=== PATIENT | male | born 1975 | race African-American/Black ===

== ENCOUNTER 2021-05-14 03:47 | Emergency (ER) | payer MEDICAID ==
--- NOTE | 2021-05-14 03:57 | ED Physician Documentation ---
PD HPI UPPER EXT INJURY - Stated complaint Stated Complaint: R THUMB INJ - History obtained from History obtained from: Patient - History of Present Illness Location: Right, Finger (thumb) Type of injury: Crush (caught in car door that closed forcefully on thumb. Blood under nail with feeling of pressure. Also pain at IP joint.) Where injury occurred: Home Timing - onset: Last night (this past evening (about 6 hours ago) with pain worsening overnight.) Timing - duration: Hours Timing - details: Abrupt onset, Still present Improved by: No: Rest, Meds (took Tylenol without improvement.) Worsened by: Moving, Palpating Associated symptoms: Swelling. No: Weakness, Numbness Similar symptoms before: Has not had sx before Review of Systems Cardiac: reports: Palpitations (feeling like having some palpitations/pressure in chest in response to the thumb pain.) Skin: denies: Abrasion (s), Laceration (s) Neurologic: denies: Focal weakness, Numbness PD PAST MEDICAL HISTORY - Past Medical History Cardiovascular: Other (he states he has had "angina" pains intermittently. No prior heart testing, heart cath nor stress testing. ) Respiratory: None - Present Medications Home Medications: Ambulatory Orders Medication Instructions Recorded Confirmed No Known Home Medications 05/14/21 05/14/21 - Allergies Allergies/Adverse Reactions: Allergies Allergy/AdvReac Type Severity Reaction Status Date / Time No Known Drug Allergies Allergy Verified 05/14/21 03:58 PD ED PE NORMAL - Vitals Vital signs reviewed: Yes - General General: Alert and oriented X 3, No acute distress, Well developed/nourished - Cardiac Cardiac: RRR, No murmur - Respiratory Respiratory: Clear bilaterally - Derm Derm: Normal color, Warm and dry - Extremities Extremities: Other (right thumb tender at nailbed and IP area. There is blood under the proximal portion of the nail. Distal nailbed in still normal. ) Results - Vitals Vitals: Vital Signs - 24 hr 05/14/21 03:56 Temperature 36.4 C L Heart Rate 53 L Respiratory 15 Rate Blood Pressure 131/78 H O2 Saturation 99 Oxygen O2 Source Room air - Rads (name of study) right thumb Radiology: Prelim report reviewed (no fractures), See rad report Procedures - General procedure General procedure: subungual hematoma at proximal nailbed decompressed with handheld cautery with couple drops of blood out. PD MEDICAL DECISION MAKING - ED course Complexity details: considered differential (he declined ECG. Can get xray of thumb. I did decompress the subungual blood. ), d/w patient Departure - Departure Disposition: 01 Home, Self Care Clinical Impression: Thumb contusion, Subungual hematoma Condition: Stable Instructions: ED Hematoma Subungual Comments: The xray is good withut any fractures/breaks. The swelling and pain should decrease over a few days. Ice, elevate and protect the finger. Tylenol or Ibuprofen as needed for pains. Add the hydrocodone provided as needed every 4-6 hours. That will cover the next day or so, and the pain should be imprved enough by then to get by with Tylenol and/or Ibuprofen. This should improve over the next several days.
[2021-05-14 03:58] VITALS: BP 131/78
[2021-05-14] MEDS ORDERED: IBUPROFEN 600 MG TABLET PO STA (04:06)
[2021-05-14] MEDS ORDERED: HYDROcod/ACET 5/325 Prepack 4 PO STA (04:07)
--- NOTE | 2021-05-14 08:17 | XRAY Report ---
PROCEDURE: Finger(s) RT INDICATIONS: right thumb crush injury TECHNIQUE: AP hand, 3 views of the right first finger(s) acquired. COMPARISON: None FINDINGS: Bones: No acute fractures or dislocations. No suspicious bony lesions. Orthopedic screws noted in t he third metacarpal. Mild first DIP joint osteoarthritis. Soft tissues: No suspicious soft tissue calcifications. No radiodense foreign body. IMPRESSION: No acute fracture. No acute osseous lesion. If there are persistent symptoms or continued clinical co ncern for pathology, then repeat plain film radiographs (7-10 days) or advanced imaging (CT, MR, bone scan) should be considered for further evaluation. Reviewed by: Eli Newberry MD, PhD on 05/14/2021 8:16 AM PST Approved by: Eli Newberry MD, PhD on 05/14/2021 8:16 AM PST Station ID: [id number]
== END 2021-05-14 05:07 | disposition home or self-care (01) ==
LOC: ED 03:47
DX: S60.111A Contusion of right thumb with damage to nail, initial encounter (principal); W23.0XXA Caught, crushed, jammed, or pinched between moving objects, initial encounter
CPT/HCPCS: 11740; 73140; 99282; 99283; A9270

== ENCOUNTER 2021-10-06 20:05 | Outpatient (CLI) | payer MEDICAID | END 2021-10-06 20:06 | disposition critical access hospital (66) | LOC: EMS 20:05 | DX: R51.9 Headache, unspecified (principal); M54.2 Cervicalgia; R53.1 Weakness | CPT/HCPCS: A0425; A0427; A0999 ==

== ENCOUNTER 2021-10-06 20:31 | Emergency (ER) | payer MEDICAID ==
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
[2021-10-06 22:08] VITALS: BP 141/88
== END 2021-10-06 22:07 | disposition home or self-care (01) ==
LOC: EDUNIT# → ED 20:31
DX: R51.9 Headache, unspecified (principal); M54.2 Cervicalgia
CPT/HCPCS: 99282; 99283

== ENCOUNTER 2022-11-05 13:53 | Outpatient (CLI) | payer BC ==
--- NOTE | 2022-11-05 16:52 | XRAY Report ---
PROCEDURE: SI Joints INDICATIONS: PAIN AND NUMBNESS TECHNIQUE: 3 views of the sacroiliac joints were acquired. COMPARISON: None FINDINGS: Bones: No bony erosions or ankylosis. No suspicious bony lesions. No fractures. Soft tissues: Overlying bowel gas pattern is normal. No suspicious soft tissue densities. IMPRESSION: No acute fracture. No osseous lesion. If symptoms and/or clinical suspicion for pathology continue, f urther assessment with repeat plain films, or advanced imaging (e.g., CT, MRI, or bone scan) is recom mended for further assessment. Reviewed by: Susan Castellon MD on 11/05/2022 4:51 PM PDT Approved by: Susan Castellon MD on 11/05/2022 4:51 PM PDT Station ID: [id number]
--- NOTE | 2022-11-05 16:52 | XRAY Report ---
PROCEDURE: Thoracic Spine 2 View INDICATIONS: PAIN AND NUMBNESS TECHNIQUE: 3 views of the thoracic spine were acquired. COMPARISON: None. FINDINGS: Bones: No fractures or dislocations. No suspicious bony lesions. Visualized ribs are intact. Multil evel disc space narrowing and endplate osteophyte formation. Soft tissues: No paravertebral stripe thickening. IMPRESSION: Multilevel degenerative disc disease. No acute fracture. No osseous lesion. If symptoms and/or clinic al suspicion for pathology continue, further assessment with repeat plain films, or advanced imaging (e.g., CT, MRI, or bone scan) is recommended for further assessment. Reviewed by: Susan Castellon MD on 11/05/2022 4:51 PM PDT Approved by: Susan Castellon MD on 11/05/2022 4:51 PM PDT Station ID: [id number]
--- NOTE | 2022-11-05 16:53 | XRAY Report ---
PROCEDURE: Lumbar Spine 2 View INDICATIONS: PAIN AND NUMBNESS TECHNIQUE: 2 views of the lumbar spine were acquired. COMPARISON: None. FINDINGS: Bones: 5 [id number] vertebrae are present. Multilevel disc space narrowing and endplate osteoph yte formation, as well as facet hypertrophy. There is normal bony alignment. No vertebral body compr ession fractures. No suspicious bony lesions. Soft tissues: Overlying bowel gas pattern is normal. No suspicious soft tissue calcifications. IMPRESSION: Multilevel degenerative disc and facet disease. No acute fracture. No osseous lesion. If symptoms and/or clinical suspicion for pathology continue, further assessment with repeat plain films , or advanced imaging (e.g., CT, MRI, or bone scan) is recommended for further assessment. Reviewed by: Susan Castellon MD on 11/05/2022 4:51 PM PDT Approved by: Susan Castellon MD on 11/05/2022 4:51 PM PDT Station ID: [id number]
== END 2022-11-05 13:54 | disposition home or self-care (01) ==
LOC: DI 13:53
PROVIDERS: ATTEND Emergency Medicine
DX: R20.0 Anesthesia of skin (principal); M47.816 Spondylosis without myelopathy or radiculopathy, lumbar region; M51.36 Other intervertebral disc degeneration, lumbar region; M51.34 Other intervertebral disc degeneration, thoracic region